=== PATIENT | male | born 1985 | race Caucasian/White ===

== ENCOUNTER 2018-07-16 16:39 | Emergency (ER) | payer OTHER ==
[2018-07-16 17:28] VITALS: BP 152/89
--- NOTE | 2018-07-16 17:30 | UC ---
Respiratory Complaint HPI - HPI Summary HPI Summary: 32 yo male presents with wheezing. He tells me that he has a long standing history of asthma and has occasional asthma attacks. Most recently he tells me that he has been having a dry cough and some sinus congestion for the past 5-7 days, but yesterday his coughing became much worse and more "intense". He began to feel short of breath and have a lot of wheezing with his coughing. He does have a nebulizer at home, but doesn't feel it works well - he did one treatment yesterday with mild relief. Today his wheezing persisted. He has been using his albuterol inhaler with no relief. His chest hurts and stomach hurt when he coughs. He denies fever, chills, sore throat, chest pain, abdominal pain, n/v. - History of Current Complaint Chief Complaint: UCRespiratory Stated Complaint: COUGH/CONGESTION Time Seen by Provider: 07/16/18 17:29 Hx Obtained From: Patient Onset/Duration: Gradual Onset Severity Initially: Severe Severity Currently: Severe Pain Intensity: 10 Pain Scale Used: 0-10 Numeric Character: Cough: Nonproductive - Allergies/Home Medications Allergies/Adverse Reactions: Allergies Allergy/AdvReac Type Severity Reaction Status Date / Time Leaves, cats, [place] and Allergy Difficulty Uncoded 07/16/18 17:28 lana nuts Breathing PMH/Surg Hx/FS Hx/Imm Hx Respiratory History: Asthma - Surgical History Surgical History: Yes Surgery Procedure, Year, and Place: hernia repair - Family History Known Family History: Positive: None - Social History Occupation: Employed Full-time Lives: With Family Alcohol Use: Occasionally Alcohol Amount: [address] Substance Use Type: None Smoking Status (MU): Former Smoker When Did the Patient Quit Smoking/Using Tobacco: 07/18 Review of Systems Constitutional: Negative Skin: Negative Eyes: Negative ENT: Negative Respiratory: Shortness Of Breath, Cough Cardiovascular: Negative Gastrointestinal: Negative Genitourinary: Negative Neurovascular: Negative Neurological: Negative Psychological: Negative All Other Systems Reviewed And Are Negative: Yes Physical Exam - Summary Physical Exam Summary: GENERAL: Obese. Increased work of breathing. SKIN: No rashes, sores, lesions, or open wounds. HEENT: Head: AT/NC Eyes: Conjunctiva clear without inflammation or discharge. Ears: Hearing grossly normal. TMs intact, no bulging, erythema, or edema. Nose: Nasal mucosa pink and moist. NTTP maxillary and frontal sinus. Throat: Posterior oropharynx without exudates, erythema, or tonsillar enlargement. Uvula midline. NECK: Supple. Nontender. No lymphadenopathy. CHEST: Moderate wheezing throughout. No r/r. Increased work of breathing. Stopping during sentences to catch his breath. CV: RRR. Without m/r/g. Pulses intact. Cap refill <2seconds NEURO: Alert. PSYCH: Age appropriate behavior. Triage Information Reviewed: Yes Vital Signs: Initial Vital Signs Temp 97.9 F 07/16/18 17:22 Pulse 130 07/16/18 17:22 Resp 22 07/16/18 17:22 BP 152/89 07/16/18 17:22 Pulse Ox 96 07/16/18 17:22 Vital Signs Reviewed: Yes Diagnostic Evaluation - Laboratory O2 Sat by Pulse Oximetry: 96 Respiratory Course/Dx - Course Course Of Treatment: EKG: Sinus tach at 126bpm. No ST changes. CXR: No radiologist reading after 1800, therefore wet read by myself is negative for acute process. He was given a duoneb nebulizer treatment in the clinic with moderate relief. Decreased wheezing on re-eval. Easier to get a deep breath - per pt. HR recheck down to 102bpm. Suspect asthma exacerbation. - Differential Dx/Diagnosis Provider Diagnoses: Asthma exacerbation Discharge - Sign-Out/Discharge Documenting (check all that apply): Patient Departure All imaging exams completed and their final reports reviewed: Yes - Discharge Plan Condition: Stable Disposition: HOME Prescriptions: Codeine Phosphate/Guaifenesin [Guaifen-Codeine 100-10 mg/5 ml] 5 ml PO BEDTIME PRN #35 ml MDD 5mL PRN Reason: Cough predniSONE TAB* [Deltasone 20 MG TAB*] 60 mg PO DAILY #15 tab Patient Education Materials: Asthma (ED) Referrals: Ash Javier MD [Primary Care Provider] - Additional Instructions: If you develop a fever, shortness of breath, chest pain, new or worsening symptoms - please call your PCP or go to the ED. Your blood pressure was high at todays visit. Please see your primary provider within 4 weeks for recheck and re-evaluation. 1) If your symptoms worsen or do not improve - please go directly to the ER - Billing Disposition and Condition Condition: STABLE Disposition: Home
[2018-07-16] MEDS ORDERED: Albuterol/Ipratropium NEB.SOL* Albuterol 2.5 MG/Ipratropium 0.5 MG 3 ML INH ONE (17:33)
--- NOTE | 2018-07-17 08:04 | RAD ---
INDICATION: Cough, asthma. COMPARISON: August 10, 2014 TECHNIQUE: Dual energy PA and routine lateral views of the chest were obtained. REPORT: Clear lungs and pleural spaces. Negative for pneumothorax. The heart, pulmonary vasculature, and mediastinal contours are unremarkable. Unremarkable osseous structures and soft tissue contours. IMPRESSION: #. No evidence for acute intrathoracic disease. R0
== END 2018-07-16 18:54 | disposition home or self-care (01) ==
LOC: UCCORT 16:39
DX: J45.901 Unspecified asthma with (acute) exacerbation (principal); Z87.891 Personal history of nicotine dependence
CPT/HCPCS: 71046; 93005; 99202; A9270-GY; G0463

== ENCOUNTER 2019-12-11 07:45 | Emergency (ER) | payer OTHER ==
[2019-12-11 08:02] VITALS: BP 175/105
--- NOTE | 2019-12-11 08:05 | UC ---
Respiratory Complaint HPI - HPI Summary HPI Summary: 33-year-old male who has had cold and cough for approximate 2 weeks. He does have asthma. He gave himself an albuterol nebulizer treatment one hour prior to arrival. He is a nonsmoker. He did get a flu shot in fall. He denies any shortness of breath however he's had a harsh cough which is causing him to lose sleep. - History of Current Complaint Chief Complaint: UCRespiratory Stated Complaint: COUGH Time Seen by Provider: 12/11/19 08:04 Hx Obtained From: Patient Onset/Duration: Gradual Onset, Lasting Weeks Timing: Intermittent Episodes Severity Initially: Mild Severity Currently: Moderate Pain Intensity: 10 Character: Cough: Nonproductive Aggravating Factors: Deep Breaths Alleviating Factors: Bronchodilator Associated Signs And Symptoms: Positive: Wheezing - Allergies/Home Medications Allergies/Adverse Reactions: Allergies Allergy/AdvReac Type Severity Reaction Status Date / Time Leaves, cats, [place] and Allergy Difficulty Uncoded 12/11/19 07:56 lana nuts Breathing Home Medications: Home Medications Albuterol 2.5MG/3ML (0.083%)* [Ventolin 2.5 MG/3 ML NEB.CESILIA*] 2.5 mg INH Q4H PRN 06/15/13 [History Confirmed 12/11/19] Fluticasone/Salmeterol [Advair Diskus] 1 aer IN BID 06/15/13 [History Confirmed 12/11/19] Montelukast Sodium TAB* [Singulair TAB*] 10 mg PO BEDTIME 06/15/13 [History Confirmed 12/11/19] Acetaminophen [Tylenol Extra Strength] 1,000 mg PO Q6H PRN 07/20/14 [History Confirmed 12/11/19] Ibuprofen TAB* [Motrin TAB* 600 MG] 400 mg PO Q4H PRN 07/20/14 [History Confirmed 12/11/19] Azithromyxin MICAH (NF) [Z-Micah (Zithromax) 250 mg tabs #6] 2 tab PO .TODAY, THEN 1 DAILY #6 tab 12/11/19 [Rx] Benzonatate CAP* [Tessalon 100 MG CAP*] 100 mg PO TID PRN #30 cap 12/11/19 [Rx] predniSONE 10 mg TAB [Deltasone 10 MG TAB*] 10 mg PO DAILY 12 Days #30 tab 12/10 [Rx] PMH/Surg Hx/FS Hx/Imm Hx Previously Healthy: Yes Respiratory History: Asthma - Surgical History Surgical History: Yes Surgery Procedure, Year, and Place: hernia repair - Family History Known Family History: Positive: None - Social History Occupation: Employed Full-time Lives: With Family Alcohol Use: Occasionally Alcohol Amount: [address] Substance Use Type: None Smoking Status (MU): Former Smoker When Did the Patient Quit Smoking/Using Tobacco: 2018 Review of Systems All Other Systems Reviewed And Are Negative: Yes Respiratory: Positive: Cough - Nonproductive cough with occasional mild wheezing. Is Patient Immunocompromised?: No Physical Exam Triage Information Reviewed: Yes Appearance: Well-Appearing, No Pain Distress, Well-Nourished Vital Signs: Initial Vital Signs Temp 98.3 F 12/11/19 07:58 Pulse 99 12/11/19 07:58 Resp 20 12/11/19 07:58 BP 175/105 12/11/19 07:58 Pulse Ox 98 12/11/19 07:58 Vital Signs Reviewed: Yes Eyes: Positive: Conjunctiva Clear ENT: Positive: Pharynx normal, TMs normal, Uvula midline Neck: Positive: Supple, Nontender, No Lymphadenopathy Respiratory: Positive: No respiratory distress, No accessory muscle use, Rhonchi - Very mild rhonchi in the right upper lobe posteriorly, very mild expiratory wheeze with forced expiration in that same area. Good air movement throughout all lung richey. Cardiovascular: Positive: RRR, No Murmur, Pulses Normal, Brisk Capillary Refill Musculoskeletal Exam: Normal Neurological Exam: Normal Psychological Exam: Normal Skin Exam: Normal Respiratory Course/Dx - Course Course Of Treatment: Patient is comfortable here and in no distress however coughing frequently. Initially, he refused an albuterol treatment because he had done one at home one hour ago however he was then agreeable to a DuoNeb treatment which increased aeration and gave him a better feeling of taking a good breath. - Differential Dx/Diagnosis Provider Diagnosis: Bronchitis Discharge ED - Sign-Out/Discharge Documenting (check all that apply): Patient Departure All imaging exams completed and their final reports reviewed: No Studies - Discharge Plan Condition: Fair Disposition: HOME Prescriptions: Azithromyxin MICAH (NF) [Z-Micah (Zithromax) 250 mg tabs #6] 2 tab PO .TODAY, THEN 1 DAILY #6 tab Benzonatate CAP* [Tessalon 100 MG CAP*] 100 mg PO TID PRN #30 cap PRN Reason: Cough predniSONE 10 mg TAB [Deltasone 10 MG TAB*] 10 mg PO DAILY 12 Days #30 tab Patient Education Materials: Acute Bronchitis (ED) Referrals: Ash Javier MD [Primary Care Provider] - Additional Instructions: Increase fluids, use your nebulizer every 4 hours as needed for wheezing or tight cough. Definite follow-up with your primary care provider in 3 or 4 days if no improvement. If you develop any worsening symptoms or shortness of breath difficulty breathing you are to go to the emergency room. - Billing Disposition and Condition Condition: FAIR Disposition: Home - Attestation Statements Provider Attestation: Per institutional requirements, I have reviewed the chart, however, I was not consulted specifically or made aware of this patient by the midlevel provider. I did not personally evaluate, interact with, or disposition this patient. EK
[2019-12-11] MEDS ORDERED: Albuterol/Ipratropium NEB.SOL* Albuterol 2.5 MG/Ipratropium 0.5 MG 3 ML INH ONE (08:13)
== END 2019-12-11 08:30 | disposition home or self-care (01) ==
LOC: UCCORT 07:45
DX: J45.909 Unspecified asthma, uncomplicated (principal); Z79.51 Long term (current) use of inhaled steroids; Z87.891 Personal history of nicotine dependence; Z91.09 Other allergy status, other than to drugs and biological substances
CPT/HCPCS: 99212; A9270-GY; G0463